=== PATIENT | male | born 1990 | race Caucasian/White ===

== ENCOUNTER 2017-07-29 13:55 | Emergency (ER) | payer BC, OTHER ==
[2017-07-29 14:11] VITALS: BP 169/82
--- NOTE | 2017-07-29 14:33 | EDM.PDOC ---
ED HPI GENERAL MEDICAL PROBLEM - General Chief Complaint: Abdominal Pain Stated Complaint: LOW ABDOMINAL PAIN Time Seen by Provider: 07/29/17 14:13 Source of Information: Reports: Patient, Family, RN Notes Reviewed - History of Present Illness INITIAL COMMENTS - FREE TEXT/NARRATIVE: 26-year-old male comes in with left lower abdominal pain associated with a bulging type mass of the left lower abdomen. He has had difficulty with this for about the past 2 months intermittently. Today with some lifting at work it once again bulged out. In the past he is been able to reduce this but today unable to do that. No nausea or vomiting. He was not having pain yesterday or today prior to this reoccurring. 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 Lower Abdominal Pain Score (Numeric/FACES): 8 - Related Data Allergies Allergy/AdvReac Type Severity Reaction Status Date / Time No Known Allergies Allergy Verified 07/29/17 14:03 Home Meds: Home Meds . [No Known Home Meds] 07/29/17 [History] ED ROS GENERAL - Review of Systems Review Of Systems: See Below Constitutional: Denies: Fever, Chills HEENT: Reports: No Symptoms Respiratory: Denies: Shortness of Breath, Pleuritic Chest Pain Cardiovascular: Denies: Chest Pain GI/Abdominal: Reports: Abdominal Pain, Distension (Area of localized mass type distention left lower abdomen and groin) : Reports: No Symptoms Musculoskeletal: Reports: No Symptoms Skin: Reports: No Symptoms Neurological: Reports: No Symptoms ED EXAM, GI/ABD - Physical Exam Exam: See Below General Appearance: Alert, No Apparent Distress (Of note his hernia reduced after triage but just before I entered the room for exam) Head: Atraumatic. No: Facial Swelling Neck: Supple, Full Range of Motion Respiratory/Chest: No Respiratory Distress Cardiovascular: Regular Rate, Rhythm GI/Abdominal Exam: Soft, Other (Area very mild tenderness left lower abdomen, no mass or swelling visible or palpable at this time) Extremities: Normal Inspection, Normal Range of Motion Neurological: Alert, No Motor/Sensory Deficits Skin Exam: Warm, Dry, Normal Color Course - Vital Signs Last Recorded V/S: Last Vital Signs Temp 98.4 F 07/29/17 14:03 Pulse 110 H 07/29/17 14:03 Resp 18 07/29/17 14:03 BP 169/82 H 07/29/17 14:03 Pulse Ox 99 07/29/17 14:03 Departure - Departure Time of Disposition: 14:31 Disposition: Home, Self-Care 01 Condition: Fair Clinical Impression: Hernia - Discharge Information Instructions: Hernia, Adult Forms: ED Department Discharge Additional Instructions: Check at [employer] to see if they would have some type of belt or support to try keep the hernia from reprotruding. Try avoid heavy lifting as best you can. See Dr. Tinsley General Surgeon at our clinic to discuss getting this repaired. Return to ED as needed
== END 2017-07-29 14:42 | disposition home or self-care (01) ==
LOC: JD.ED 13:55
DX: K46.9 Unspecified abdominal hernia without obstruction or gangrene (principal)
CPT/HCPCS: 99282; 99283

== ENCOUNTER 2017-08-12 06:52 | Day surgery (SDC) | payer BC ==
[~2017-08-12 06:52] MED LIST: Lactated Ringers 1,000 ML IV SCH; Lidocaine 1%/Sod Bicarbonate in NS 8.4% 1 ML Syringe PRN; Sodium Chloride 0.9% 10 ML Syringe FLUSH PRN
[2017-08-12] MEDS ORDERED: Lidocaine 1% with EPINEPHrine 1:100,000 20 ML MDV ONE (07:28)
[2017-08-12] MEDS ORDERED: Bupivacaine 0.5%/EPINEPHrine 1:200,000 50 ML MDV ONE (07:28)
[2017-08-12] MEDS ORDERED: Midazolam 1 MG/ML 2 ML SDV ONE (07:31)
[2017-08-12] MEDS ORDERED: Propofol 200 MG/20 ML SDV ONE (07:31)
[2017-08-12] MEDS ORDERED: fentaNYL 250 MCG/5 ML SDV ONE (07:31)
[2017-08-12] MEDS ORDERED: Dexamethasone 4 MG/ML 5 ML MDV ONE (07:32)
[2017-08-12] MEDS ORDERED: Lidocaine 1% 4 ML ONE (07:32)
[2017-08-12] MEDS ORDERED: Ondansetron 4 MG/2 ML SDV ONE (07:32)
--- NOTE | 2017-08-12 07:38 | PCM.PREANE ---
Preanesthetic Assessment - Procedure Proposed Procedure: Left inguinal hernia repair with mesh - Anesthesia/Transfusion/Family Hx Anesthesia History: No Prior Anesthesia Family History of Anesthesia Reaction: No Transfusion History: No Prior Transfusion(s) - Review of Systems General: No Symptoms Pulmonary: No Symptoms Cardiovascular: No Symptoms Gastrointestinal: No Symptoms Neurological: No Symptoms Other: Reports: None - Physical Assessment NPO Status Date: 08/11/17 NPO Status Time: 22:00 Pulse: 56 O2 Sat by Pulse Oximetry: 98 Respiratory Rate: 16 Blood Pressure: 112/63 Temperature: 37.0 C Height: 1.83 m Weight: 82.1 kg ASA Class: 1 Mental Status: Alert & Oriented x3 Airway Class: Mallampati = 2 Dentition: Reports: Normal Dentition Thyro-Mental Finger Breadths: 3 Mouth Opening Finger Breadths: 3 ROM/Head Extension: Full Lungs: Clear to Auscultation, Normal Respiratory Effort Cardiovascular: Regular Rate, Regular Rhythm - Allergies Allergies/Adverse Reactions: Allergies Allergy/AdvReac Type Severity Reaction Status Date / Time No Known Allergies Allergy Verified 08/09/17 11:19 - Blood Blood Available: No Product(s) Available: None - Anesthesia Plan Pre-Op Medication Ordered: None - Acknowledgements Anesthesia Type Planned: General Anesthesia (LMA) Pt an Appropriate Candidate for the Planned Anesthesia: Yes Alternatives and Risks of Anesthesia Discussed w Pt/Guardian: Yes Pt/Guardian Understands and Agrees with Anesthesia Plan: Yes PreAnesthesia Questionnaire - Past Health History Medical/Surgical History: Denies Medical/Surgical History - SUBSTANCE USE Smoking Status *Q: Current Every Day Smoker (0.5ppd for 6 years) Second Hand Smoke Exposure: No - HOME MEDS Home Medications: Home Meds Cetirizine HCl [Zyrtec] 10 mg PO ASDIRECTED PRN 08/12/17 [History] - CURRENT (IN HOUSE) MEDS Current Meds: Current Medications Lactated Ringer's (Ringers, Lactated) 1,000 mls @ 125 mls/hr IV ASDIRECTED YURY Stop: 08/12/17 23:00 Last Admin: 08/12/17 07:20 Dose: 125 mls/hr Lidocaine/Sodium Bicarbonate (Buffered Lidocaine 1% In Ns 8.4%) 0.25 ml .XX ONETIME PRN PRN Reason: Prior to IV Start Stop: 08/12/17 18:00 Last Admin: 08/12/17 07:19 Dose: 0.25 ml Sodium Chloride (Saline Flush) 10 ml FLUSH ASDIRECTED PRN PRN Reason: Keep Vein Open Stop: 08/12/17 18:00 Discontinued Medications Bupivacaine HCl/Epinephrine Bitart (Marcaine 0.5%/Epinephrine 1:200,000) Confirm Administered Dose 50 ml .ROUTE .STK-MED ONE Stop: 08/12/17 07:29 Dexamethasone (Dexamethasone) Confirm Administered Dose 20 mg .ROUTE .STK-MED ONE Stop: 08/12/17 07:33 Fentanyl (Sublimaze) Confirm Administered Dose 250 mcg .ROUTE .STK-MED ONE Stop: 08/12/17 07:32 Lidocaine HCl (Xylocaine-Mpf 1%) Confirm Administered Dose 4 mls @ as directed .ROUTE .STK-MED ONE Stop: 08/12/17 07:33 Lidocaine/Epinephrine (Xylocaine 1% With Epinephrine 1:100,000) Confirm Administered Dose 20 ml .ROUTE .STK-MED ONE Stop: 08/12/17 07:29 Midazolam HCl (Versed 1 Mg/Ml) Confirm Administered Dose 2 mg .ROUTE .STK-MED ONE Stop: 08/12/17 07:32 Ondansetron HCl (Zofran) Confirm Administered Dose 4 mg .ROUTE .STK-MED ONE Stop: 08/12/17 07:33 Propofol (Diprivan 20 Ml) Confirm Administered Dose 200 mg .ROUTE .STK-MED ONE Stop: 08/12/17 07:32
[2017-08-12] MEDS ORDERED: Ondansetron 4 MG/2 ML SDV IVPUSH PRN (08:27)
[2017-08-12] MEDS ORDERED: HYDROmorphone 0.5 MG/0.5 ML Syringe IVPUSH PRN (08:27)
[2017-08-12] MEDS ORDERED: fentaNYL 100 MCG/2 ML SDV IVPUSH PRN (08:27)
[2017-08-12] MEDS ORDERED: Meperidine PF 50 MG/ML Syringe IVPUSH PRN (08:27)
[2017-08-12] MEDS ORDERED: diphenhydrAMINE 50 MG/ML SDV IVPUSH PRN (08:27)
--- NOTE | 2017-08-12 09:10 | PCM.OPNOTE ---
- General Post-Op/Procedure Note Date of Surgery/Procedure: 08/12/17 Operative Procedure(s): Open left inguinal hernia repair with mesh and excision of cord lipoma Findings: Indirect inguinal hernia and a cord lipoma Pre Op Diagnosis: Symptomatic left inguinal hernia Post-Op Diagnosis: 1. Indirect left inguinal hernia. 2. Lipoma of the spermatic cord Anesthesia Technique: General LMA, Local Primary Surgeon: Ezio Tinsley Pathology: Hernia sac EBL in mLs: 5 Complications: None Condition: Good Free Text/Narrative:: After adequate LMA general anesthesia was obtained the patient's left groin was prepped and draped sterilely for the procedure. After local analgesia was given over the canal a 15 blade was used to make an incision down to the fascia of the external oblique. This structure was opened in the direction of its fibers carefully displacing the ilioinguinal nerve. The spermatic cord was mobilized at the pubic tubercle and controlled with a Ryder drain. I made an incision in the cord and dissected out the sac away from the cord structures. I opened the sac which was empty. A 2-0 pursestring silk suture was placed at the base and the sac was amputated. The previously dissected away cord lipoma was clamped at its base and excised and a 3-0 Vicryl was used to ligate the stump. A Prolene mesh was placed in the floor of the canal securing it to the inguinal ligament and the internal oblique fascia with a running 2-0 Prolene suture. A keyhole was used for cord egress. I irrigated out the area with saline. The external oblique fascia was closed over the canal structures with 3-0 Vicryl. Additional local was given subfascially. Vivian's fascia was closed next and the skin with Vicryl running as well. Steri-Strips and gauze were used for the dressing. There were no complications.
--- NOTE | 2017-08-12 09:12 | PCM.POSTAN ---
POST ANESTHESIA ASSESSMENT - MENTAL STATUS Mental Status: Alert, Oriented - VITAL SIGNS Pulse Rate: 55 SaO2: 97 Resp Rate: 10 Blood Pressure: 98/49 Temperature: 36.2 C - RESPIRATORY Respiratory Status: Respiratory Rate WNL, Airway Patent, O2 Saturation Stable, Supplemental Oxygen - CARDIOVASCULAR CV Status: Pulse Rate WNL, Blood Pressure Stable - GASTROINTESTINAL GI Status: No Symptoms - POST OP HYDRATION Hydration Status: Adequate & Stable
[2017-08-12 10:29] VITALS: BP 107/65
== END 2017-08-12 10:44 | disposition home or self-care (01) ==
LOC: JD.SDS 06:52
PROVIDERS: ATTEND Surgery
DX: K40.90 Unilateral inguinal hernia, without obstruction or gangrene, not specified as recurrent (principal); D17.6 Benign lipomatous neoplasm of spermatic cord; J30.2 Other seasonal allergic rhinitis; F17.210 Nicotine dependence, cigarettes, uncomplicated; Z79.899 Other long term (current) drug therapy
CPT/HCPCS: 49505; 55520; C1781; J1100; J2250; J2405; J3010; J7120; 00830; J2704